=== PATIENT | female | born 1990 | race American Indian/Alaskan Native ===

== ENCOUNTER 2018-06-23 10:37 | Emergency (ER) | payer MEDICAID, OTHER ==
[2018-06-23 10:44] VITALS: BP 121/56
--- NOTE | 2018-06-23 10:54 | Emergency Department Report ---
ED Dysuria HPI - HPI Chief Complaint: Back Pain/Injury Stated Complaint: BACK PAIN/SPOTTING Time Seen by Provider: 06/23/18 10:51 Duration: 5 Days Location of Discomfort: Suprapubic Severity: Mild Symptoms: Dysuria: Yes, Frequency: No, Suprapubic Pain: No, Flank Pain: No, Fever: No, Hematuria: No, Abdominal Pain: No, Previous UTI's: Yes Other History: Patient is a 28-year-old -[place] female who comes in today with low back pain and burning with urination for 2 weeks. She is afebrile. She has no CVA tenderness. Vital signs are stable. Last menstrual cycle was 12 to. She has a past medical history of vaginal herpes ED Review of Systems ROS: Stated complaint: BACK PAIN/SPOTTING Other details as noted in HPI Comment: All other systems reviewed and negative Constitutional: denies: see HPI, chills, fever Eyes: denies: eye pain ENT: denies: throat pain Respiratory: denies: orthopnea Cardiovascular: denies: palpitations Endocrine: denies: excessive sweating Gastrointestinal: as per HPI. denies: abdominal pain, nausea, vomiting, diarrhea, constipation, hematemesis, melena Genitourinary: as per HPI, dysuria. denies: urgency, frequency, hematuria, discharge, abnormal menses Musculoskeletal: as per HPI, back pain Skin: denies: rash Neurological: denies: weakness Psychiatric: denies: depression Hematological/Lymphatic: denies: easy bleeding ED Past Medical Hx - Past Medical History Previous Medical History?: No Hx Hypertension: No Hx Diabetes: No Hx Deep Vein Thrombosis: No Hx Renal Disease: Yes (FREQ UTI) Hx Sickle Cell Disease: No Hx Seizures: No Hx Asthma: No Hx HIV: No - Surgical History Past Surgical History?: Yes Additional Surgical History: C SECTION X2 - Social History Smoking Status: Current Every Day Smoker Substance Use Type: None - Medications Home Medications: Home Medications Medication Instructions Recorded Confirmed Last Taken Type Nitrofurantoin Monohyd/M-Cryst 100 mg PO BID #10 capsule 06/23/18 Unknown Rx [Macrobid 100 mg Capsule] Dysuria Exam - Exam General: Vital signs noted. No distress. Alert and acting appropriately. Exam: Yes Moist Mucous Membranes, No CVA Tenderness, No Abdominal Tenderness, No Rigidity or Guarding ED Course Vital Signs 06/23/18 10:41 Temperature 97.6 F Pulse Rate 76 Respiratory 18 Rate Blood Pressure 121/56 O2 Sat by Pulse 98 Oximetry ED Medical Decision Making - Medical Decision Making Labs 06/23/18 10:53 Urine Color Yellow Urine Turbidity Clear Urine pH 5.0 Ur Specific [place] 1.018 Urine Protein <15 mg/dl Urine Glucose (UA) Neg Urine Ketones Neg Urine Blood Mod Urine Nitrite Pos Urine Bilirubin Neg Urine Urobilinogen < 2.0 Ur Leukocyte Esterase Tr Urine WBC (Auto) 11.0 H Urine RBC (Auto) 4.0 U Epithel Cells (Auto) 1.0 Urine Mucus Few Urine HCG, Qual Negative PREG NEG UA NOTED TREAT WITH MACROBID AND ARRANGE FOLLOW UP WITH PCP NO FEVER AMBULATORY TAKING PO Critical care attestation.: If time is entered above; I have spent that time in minutes in the direct care of this critically ill patient, excluding procedure time. ED Disposition Clinical Impression: UTI (urinary tract infection) Disposition: - TO HOME OR SELFCARE Is pt being admited?: No Does the pt Need Aspirin: No Condition: Stable Instructions: Urinary Tract Infection in Women (ED) Additional Instructions: MEDS ORDERED TODAY HYDRATE WELL FOLLOW UP PCP WHEN ANTIBIOTICS ARE DONE TO BE SURE THIS HAS GONE AWAY URINATE AFTER SEX Prescriptions: Nitrofurantoin Monohyd/M-Cryst [Macrobid 100 mg Capsule] 100 mg PO BID #10 capsule Referrals: PRIMARY MD JACINTA [Primary Care Provider] - 3-5 Days JO ANN MURILLO MD [Staff Physician] - 3-5 Days Forms: Work/School Release Form(ED) Time of Disposition: 12:05
[2018-06-23 11:22] LABS: Bilirubin,Urine NEG (Negative); Blood,Urine MOD (Negative); Color,Urine Yellow (Yellow); Mucus,Urine FEW /HPF; Protein,Urine <15 mg/dL mg/dL (Negative); Urobilinogen,Urine < 2.0 mg/dL (<2.0)
[2018-06-23 12:01] LABS: HCG Qualitative,Urine Negative (Negative)
== END 2018-06-23 12:16 | disposition home or self-care (01) ==
LOC: ED 10:37
DX: N39.0 Urinary tract infection, site not specified (principal); F17.200 Nicotine dependence, unspecified, uncomplicated
CPT/HCPCS: 81001; 81025; 99283

== ENCOUNTER 2018-09-23 00:46 | Emergency (ER) | payer SELFPAY ==
[2018-09-23] MEDS ORDERED: NACL 0.9% 1000 ML 1,000 ML IV ONE ×2 (00:53→04:33)
[2018-09-23 00:54] VITALS: BP 115/72
[2018-09-23 01:27] LABS: Basophils % (Auto) 0.2 % (0.0-1.8); Eosinophils % (Auto) 0.4 % (0.0-4.3); Hematocrit 39.8 % (30.3-42.9); Hemoglobin 13.2 gm/dl (10.1-14.3); Lymphocytes # (Auto) 1.2 K/mm3 (1.2-5.4); Lymphocytes % (Auto) 10.3 % (13.4-35.0); Mean Corpuscular HGB Conc 33 % (30-34); Mean Corpuscular Volume 84 fl (79-97); Monocytes # (Auto) 0.6 K/mm3 (0.0-0.8); Monocytes % (Auto) 5.2 % (0.0-7.3); Platelet Count 209 K/mm3 (140-440); Red Blood Count 4.73 M/mm3 (3.65-5.03)
[2018-09-23 01:38] LABS: Amorphous Crystals,Urine Few; Bilirubin,Urine NEG (Negative); Blood,Urine NEG (Negative); Color,Urine Yellow (Yellow); Mucus,Urine 2+ /HPF
[2018-09-23 01:51] LABS: Alanine Aminotransferase 9 units/L (7-56); Albumin 4.5 g/dL (3.9-5); BUN/Creatinine Ratio 24; Blood Urea Nitrogen 12 mg/dL (7-17); Hemolysis Index 1
[2018-09-23] MEDS ORDERED: TYLENOL ONE (04:09)
[2018-09-23] MEDS ORDERED: ZOFRAN ODT ONE (04:09)
[2018-09-23] MEDS ORDERED: ZOFRAN ODT PO ONE (04:10)
[2018-09-23] MEDS ORDERED: TYLENOL PO ONE (04:10)
--- NOTE | 2018-09-23 07:14 | Ultrasound Report ---
PROCEDURE: US OB <= 14 WEEKS FETUS TECHNIQUE: Transabdominal imaging was obtained of the pelvis. HISTORY: abd pain, back pain COMPARISONS: None FINDINGS: The uterus is anteverted measuring 11.2 x 9.0 x 9.3 cm. Within the uterus is a well formed gestationa l sac containing an embryo with a crown-rump length of 51.2 mm. This corresponds to a 12 week 1 day I UP. The heart rate is 157 BPM. Free fluid is not notified. Both ovaries are normal in size contour and echotexture. The right ovary measures 3.4 x 2.5 x 3 cm. T he left ovary measures 4 cm x 1.6 cm x 3.2 cm. IMPRESSION: Single viable IUP, 12 weeks 1 day. The heart rate is 157 BPM. Normal-appearing ovaries.. This document is electronically signed by Carson Mccallum MD., September 23 2018 07:11:57 AM ET
--- NOTE | 2018-09-23 07:24 | Emergency Department Report ---
Vomiting/Diarrhea - HPI Chief Complaint: Nausea/Vomiting/Diarrhea Stated Complaint: ? 8WKS PREG, CP, BACK PAIN Time Seen by Provider: 09/23/18 04:15 Severity: moderate Nausea/Vomiting Severity: Mild Diarrhea Severity: None Pain Severity: None Symptoms: Yes Able to Tolerate Fluids, No Watery Diarrhea, No Bloody diarrhea, No Fever, No Recent Unusual Foods, No Recent Untreated Water, No Recent use of Antibiotics, No Family w/ Similar Symptoms, No Contacts w/ Similar Symptoms, No Rash, No Hematuria, No Recent URI Symptoms Other History: This is a female presents at approximately 8 weeks present 2 of no flank pain, nausea vomiting for some weeks. Patient is also complaining of some made abdominal cramps from vomiting. She states she takes vitamins. Has not had care for this . ED Review of Systems ROS: Stated complaint: ? 8WKS PREG, CP, BACK PAIN Other details as noted in HPI Comment: All other systems reviewed and negative ED Past Medical Hx - Past Medical History Previous Medical History?: Yes Hx Hypertension: No Hx Diabetes: No Hx Deep Vein Thrombosis: No Hx Renal Disease: Yes (FREQ UTI) Hx Sickle Cell Disease: No Hx Seizures: No Hx Asthma: No Hx HIV: No - Surgical History Past Surgical History?: Yes Additional Surgical History: C SECTION X2 - Social History Smoking Status: Never Smoker Substance Use Type: None - Medications Home Medications: Home Medications Medication Instructions Recorded Confirmed Last Taken Type Nitrofurantoin Monohyd/M-Cryst 100 mg PO BID #10 capsule 06/23/18 Unknown Rx [Macrobid 100 mg Capsule] Acetaminophen [Tylenol] 325 mg PO TID #30 capsule 09/23/18 Unknown Rx Doxylamine Succinate/Vit B6 2 each PO QHS #30 tablet. 09/23/18 Unknown Rx [Jana Mehta 10-10 mg Tablet] Nitrofurantoin Monohyd/M-Cryst 100 mg PO BID #14 capsule 09/23/18 Unknown Rx [Macrobid 100 mg Capsule] Vomiting Diarrhea Exam - Exam General: Vital signs noted. No distress. Alert and acting appropriately. HEENT: Yes Moist Mucous Membranes, No Pharyngeal Erythema, No Pharyngeal Exudates, No Rhinorrhea, No Conjuctival Injection, No Frontal Tenderness, No Maxillary Tenderness Neck: No Adenopathy, No Rigidity Lungs: Yes Clear Lung Sounds, Yes Good Air Exchange, No Wheezes, No Stridor, No Cough, No Nasal Flaring, No Retractions, No Use of Accessory Muscles Heart exam: Regular: Yes, Murmur: No, Tachycardia: No Abdomen: Tenderness: No, Peritoneal Signs: No, Distention: No, Hyperactive Bowel sounds: No Skin exam: Rash: No, Edema: No, Normal turgor: Yes Neurologic: Alert and oriented, no deficits. Musculoskeletal: Unremarkable. ED Course Vital Signs 09/23/18 00:47 Temperature 98.0 F Pulse Rate 104 H Respiratory 18 Rate Blood Pressure 115/72 O2 Sat by Pulse 98 Oximetry ED Medical Decision Making - Lab Data Result diagrams: 09/23/18 01:02 09/23/18 01:02 Laboratory Last Values WBC 11.6 K/mm3 (4.5-11.0) H 09/23/18 01:02 RBC 4.73 M/mm3 (3.65-5.03) 09/23/18 01:02 Hgb 13.2 gm/dl (10.1-14.3) 09/23/18 01:02 Hct 39.8 % (30.3-42.9) 09/23/18 01:02 MCV 84 fl (79-97) 09/23/18 01:02 MCH 28 pg (28-32) 09/23/18 01:02 MCHC 33 % (30-34) 09/23/18 01:02 RDW 17.0 % (13.2-15.2) H 09/23/18 01:02 Plt Count 209 K/mm3 (140-440) 09/23/18 01:02 Lymph % (Auto) 10.3 % (13.4-35.0) L 09/23/18 01:02 [place] % (Auto) 5.2 % (0.0-7.3) 09/23/18 01:02 Eos % (Auto) 0.4 % (0.0-4.3) 09/23/18 01:02 Baso % (Auto) 0.2 % (0.0-1.8) 09/23/18 01:02 Lymph # 1.2 K/mm3 (1.2-5.4) 09/23/18 01:02 [place] # 0.6 K/mm3 (0.0-0.8) 09/23/18 01:02 Eos # 0.0 K/mm3 (0.0-0.4) 09/23/18 01:02 Baso # 0.0 K/mm3 (0.0-0.1) 09/23/18 01:02 Seg Neutrophils % 83.9 % (40.0-70.0) H 09/23/18 01:02 Seg Neutrophils # 9.7 K/mm3 (1.8-7.7) H 09/23/18 01:02 Sodium 135 mmol/L (137-145) L 09/23/18 01:02 Potassium 3.8 mmol/L (3.6-5.0) 09/23/18 01:02 Chloride 95.3 mmol/L (98-107) L 09/23/18 01:02 Carbon Dioxide 23 mmol/L (22-30) 09/23/18 01:02 Anion Gap 21 mmol/L 09/23/18 01:02 BUN 12 mg/dL (7-17) 09/23/18 01:02 Creatinine 0.5 mg/dL (0.7-1.2) L 09/23/18 01:02 Estimated GFR > 60 ml/min 09/23/18 01:02 BUN/Creatinine Ratio 24 % 09/23/18 01:02 Glucose 117 mg/dL (65-100) H 09/23/18 01:02 Calcium 10.0 mg/dL (8.4-10.2) 09/23/18 01:02 Total Bilirubin 0.30 mg/dL (0.1-1.2) 09/23/18 01:02 AST 15 units/L (5-40) 09/23/18 01:02 ALT 9 units/L (7-56) 09/23/18 01:02 Alkaline Phosphatase 54 units/L (35-129) 09/23/18 01:02 Total Protein 7.4 g/dL (6.3-8.2) 09/23/18 01:02 Albumin 4.5 g/dL (3.9-5) 09/23/18 01:02 Albumin/Globulin Ratio 1.6 % 09/23/18 01:02 Lipase 16 units/L (13-60) 09/23/18 01:02 HCG, Quant 63335 mIU/mL (0-4) H 09/23/18 05:10 Urine Color Yellow (Yellow) 09/23/18 Unknown Urine Turbidity Slightly-cloudy (Clear) 09/23/18 Unknown Urine pH 7.0 (5.0-7.0) 09/23/18 Unknown Ur Specific [place] 1.033 (1.003-1.030) H 09/23/18 Unknown Urine Protein 30 mg/dl mg/dL (Negative) 09/23/18 Unknown Urine Glucose (UA) Neg mg/dL (Negative) 09/23/18 Unknown Urine Ketones 80 mg/dL (Negative) 09/23/18 Unknown Urine Blood Neg (Negative) 09/23/18 Unknown Urine Nitrite Neg (Negative) 09/23/18 Unknown Urine Bilirubin Neg (Negative) 09/23/18 Unknown Urine Urobilinogen 4.0 mg/dL (<2.0) 09/23/18 Unknown Ur Leukocyte Esterase Sm (Negative) 09/23/18 Unknown Urine WBC (Auto) 51.0 /HPF (0.0-6.0) H 09/23/18 Unknown Urine RBC (Auto) 3.0 /HPF (0.0-6.0) 09/23/18 Unknown U Epithel Cells (Auto) 1.0 /HPF (0-13.0) 09/23/18 Unknown Amorphous Crystals Few 09/23/18 Unknown Urine Mucus 2+ /HPF 09/23/18 Unknown - Radiology Data Radiology results: report reviewed, image reviewed FINDINGS: The uterus is anteverted measuring 11.2 x 9.0 x 9.3 cm. Within the uterus is a well formed gestational sac containing an embryo with a crown-rump length of 51.2 mm. This corresponds to a 12 week 1 day IUP. The heart rate is 157 BPM. Free fluid is not notified. Both ovaries are normal in size contour and echotexture. The right ovary hugo ures 3.4 x 2.5 x 3 cm. The left ovary measures 4 cm x 1.6 cm x 3.2 cm. IMPRESSION: Single viable IUP, 12 weeks 1 day. The heart rate is 157 BPM. Normal-appearing ovaries.. This document is electronically signed by Mart Mccallum MD., September 23 2018 07:11:57 AM ET Transcribed By: RB Dictated By: MART MCCALLUM MD Electronically Authenticated By: MART MCCALLUM MD Signed Date/Time: 09/23/18713 - Medical Decision Making This is a 28-year-old female presents to for nausea vomiting of . Patient received 1 L of fluids, Zofran in the ED. Patient reports feeling much better after administration of medicines. Discussed the patient to increase hydration. Discussed the patient to follow up with [facility]. Referrals given. Patient's vital signs are normal she is in no acute distress. Critical care attestation.: If time is entered above; I have spent that time in minutes in the direct care of this critically ill patient, excluding procedure time. ED Disposition Clinical Impression: , Nausea/vomiting in , Cystitis Disposition: DC- TO HOME OR SELFCARE Is pt being admited?: No Does the pt Need Aspirin: No Condition: Stable Instructions: Morning Sickness (ED), (ED) Additional Instructions: Make sure to follow up with [facility] as discussed. Take all your medications as you've been prescribed. If you have any worsening symptoms or develop new symptoms please return to ED immediately. Prescriptions: Doxylamine Succinate/Vit B6 [Jana Mehta 10-10 mg Tablet] 2 each PO QHS #30 tablet. Nitrofurantoin Monohyd/M-Cryst [Macrobid 100 mg Capsule] 100 mg PO BID #14 capsule Acetaminophen [Tylenol] 325 mg PO TID #30 capsule Referrals: [facility] MD ROSENDA [Primary Care Provider] - 3-5 Days JONE MORALES MD [Referring] - 3-5 Days HERB CARRENO MD [Referring] - 3-5 Days RAVI KAN MD [Staff Physician] - 3-5 Days Forms: Accompanied Note, Work/School Release Form(ED) Time of Disposition: 07:37
== END 2018-09-23 08:11 | disposition home or self-care (01) ==
LOC: ED 00:46
DX: O23.11 Infections of bladder in pregnancy, first trimester (principal); O21.8 Other vomiting complicating pregnancy; Z3A.08 8 weeks gestation of pregnancy
CPT/HCPCS: 36415; 76801; 80053; 81001; 83690; 84702; 85025; 93005; 93010; 96360; 96361; 99284; J7030; Q0162